=== PATIENT | male | born 1955 ===

== ENCOUNTER 2022-01-17 23:43 | Emergency (ER) | payer MEDICARE, BC ==
[2022-01-18 00:29] LABS: CHLORIDE,CL 106 mmol/L (98-107); SODIUM,NA 141 mmol/L (136-145)
== END 2022-01-18 02:35 | disposition home or self-care (01) ==
LOC: DL.ED 23:43
DX: R42 Dizziness and giddiness (principal); I10 Essential (primary) hypertension; J32.0 Chronic maxillary sinusitis
CPT/HCPCS: 36415; 70450; 71045; 80053; 83735; 84484; 85025; 93005; 99284-25